=== PATIENT | female | born 1960 | race Two or more races ===

== ENCOUNTER 2020-08-30 08:14 | Outpatient (REF) | payer MEDICAID, SELFPAY ==
--- NOTE | ~2020-08-30 | MM_ITS ---
EXAMINATION: MM DIAGNOSTIC DIGITAL BREAST TOMOSYNTHESIS, BILATERAL US DIAGNOSTIC ULTRASOUND BREAST, BILATERAL CLINICAL INFORMATION: Due for yearly. Patient notes one month history bilateral breast pain left inferior lateral, right inferior lateral. No palpable mass or discharge. Family history breast cancer in mother. The lifetime risk of breast cancer based on the Tyrer-Cuzick Model is 12%. COMPARISON: Mammography: 09/13/2018, 08/02/2017, 07/24/2016 TECHNIQUE: Digital breast tomosynthesis is performed in both the craniocaudal and mediolateral oblique views along with computer-aided detection (CAD). Synthesized 2D images are generated from the tomosynthesis. Ultrasound of both breasts is targeted to the areas of clinical concern, left 3:00 through 5:00 position and right 7:00 through 9:00 position. Grayscale imaging and color Doppler are performed without and with harmonics. FINDINGS: There are scattered areas of fibroglandular density (ACR BI-RADS breast composition Category b). There are no significant masses, abnormal calcifications, or other abnormalities. Parenchymal pattern is similar to prior studies. There is no developing density. No skin thickening or coarsening of the Jay's ligament. The axilla are unremarkable. Targeted bilateral breast ultrasound demonstrates no cystic or solid mass, architectural abnormality, or focal duct ectasia. No skin thickening or edema tracking in soft tissue planes. No focal hyperemia. Results are discussed with the patient at time of visit, using an car seat maker. MM/MM tomosynthesis diagnostic BI IMPRESSION: 1. No mammographic evidence of malignancy or inflammatory changes. 2. Unremarkable bilateral targeted breast ultrasound. ASSESSMENT: BI-RADS 1: Negative RECOMMENDATION: 1. Patient's bilateral breast pain should be managed based on the clinical impression. 2. Otherwise, routine annual screening mammography. This patient's information was entered into a reminder system with a target due date for their next mammogram.
== END 2020-08-30 08:15 | disposition home or self-care (01) ==
LOC: HO.MAMMO 08:14
PROVIDERS: Visit Provider Family Medicine
DX: N64.4 Mastodynia (principal); Z80.3 Family history of malignant neoplasm of breast
CPT/HCPCS: 76642; 77062; 77066

== ENCOUNTER 2021-09-22 11:45 | Outpatient (REF) | payer MEDICAID, SELFPAY ==
--- NOTE | ~2021-09-22 | MM_ITS ---
EXAMINATION: MM SCREENING DIGITAL BREAST TOMOSYNTHESIS, BILATERAL CLINICAL INFORMATION: Screening. Asymptomatic. The lifetime risk of breast cancer based on the Tyrer-Cuzick Model is 6%. COMPARISON: Mammography: 08/30/2020, 09/13/2018, 08/02/2017 TECHNIQUE: Digital breast tomosynthesis is performed in both the craniocaudal and mediolateral oblique views along with computer-aided detection (CAD). Synthesized 2D images are generated from the tomosynthesis. FINDINGS: There are scattered areas of fibroglandular density (ACR BI-RADS breast composition Category b). There are no significant masses, abnormal calcifications, or other abnormalities. Parenchymal pattern is similar to prior studies. There is no developing density or architectural abnormality. The axilla and skin contours are unremarkable. No significant changes. MM/MM tomosynthesis screening BI IMPRESSION: No mammographic evidence of malignancy. ASSESSMENT: BI-RADS 1: Negative RECOMMENDATION: Routine annual mammography screening. This patient's information was entered into a reminder system with a target due date for their next mammogram.
== END 2021-09-22 11:46 | disposition home or self-care (01) ==
LOC: HO.MAMMO 11:45
PROVIDERS: PCP Family Medicine; Visit Provider Family Medicine
DX: Z12.31 Encounter for screening mammogram for malignant neoplasm of breast (principal)
CPT/HCPCS: 77063; 77067

== ENCOUNTER 2021-11-07 14:00 | Outpatient (RCR) | payer MEDICAID, SELFPAY | END 2021-12-25 07:39 | disposition home or self-care (01) | LOC: HO.PT 14:00 | PROVIDERS: PCP Family Medicine; Visit Provider Nurse Practitioner Primary Care | DX: R42 Dizziness and giddiness (principal) | CPT/HCPCS: 97112; 97162 ==

== ENCOUNTER 2022-12-01 08:52 | Outpatient (REF) | payer MEDICAID, SELFPAY ==
--- NOTE | ~2022-12-01 | MM_ITS ---
EXAMINATION: MM SCREENING DIGITAL BREAST TOMOSYNTHESIS, BILATERAL CLINICAL INFORMATION: Screening. Asymptomatic. The lifetime risk of breast cancer based on the Tyrer-Cuzick Model is 8.8%. COMPARISON: Mammography: This study is compared with prior exams dating back to 2019. TECHNIQUE: Digital breast tomosynthesis is performed in both the craniocaudal and mediolateral oblique views along with computer-aided detection (CAD). Synthesized 2D images are generated from the tomosynthesis. FINDINGS: There are scattered areas of fibroglandular density (ACR BI-RADS breast composition Category b). There are no significant masses, abnormal calcifications, or other abnormalities. MM/MM tomosynthesis screening BI IMPRESSION: No mammographic evidence of malignancy. ASSESSMENT: BI-RADS BI-RADS 1 - Negative RECOMMENDATION: Routine annual mammography screening. 1 year F/U This examination should not preclude the clinical evaluation of a suspicious palpable abnormality. This patient's information was entered into a reminder system with a target due date for their next mammogram.
== END 2022-12-01 08:53 | disposition home or self-care (01) ==
LOC: HO.MAMMO 08:52
PROVIDERS: PCP Family Medicine; Visit Provider Family Medicine
DX: Z12.31 Encounter for screening mammogram for malignant neoplasm of breast (principal)
CPT/HCPCS: 77063; 77067

== ENCOUNTER → 2022-12-01 09:00 | Outpatient (BNV) | payer MEDICAID, SELFPAY | PROVIDERS: PCP Family Medicine; Visit Provider Radiology Diagnostic Radiology | DX: Z12.31 Encounter for screening mammogram for malignant neoplasm of breast (principal) | CPT/HCPCS: 77063; 77067 ==

== ENCOUNTER 2023-10-11 08:31 | Outpatient (REF) | payer MEDICAID, SELFPAY ==
[2023-10-11 11:58] LABS: Alanine Aminotransferase 32 U/L (0-31); Albumin Level 4.1 g/dL (3.5-5.0); Alkaline Phosphatase 97 U/L (39-117); Anion Gap 14 (12-20); Aspartate Amino Transferase 37 U/L (5-31); Bilirubin Direct 0.2 mg/dL (0.0-0.5); Bilirubin Total 0.3 mg/dL (0.0-1.0); Blood Urea Nitrogen 19 mg/dL (9-16); Calcium 9.5 mg/dL (8.4-10.2); Carbon Dioxide 24 mmol/L (22-29); Chloride 107 mmol/L (96-108); Cholesterol 200 mg/dL (<200); Estimated Glomerular Filt Rate > 60; Glucose Random 140 mg/dL (60-115); HDL Cholesterol 48 mg/dL (>40); LDL Cholesterol Calculated 106 mg/dL (<100); Potassium 4.5 mmol/L (3.3-5.1); Sodium 140 mmol/L (135-145); Total Protein 7.8 g/dL (6.5-8.0); Triglycerides 231 mg/dL (<150)
[2023-10-11 12:19] LABS: Creatinine Urine 50.43 mg/dL; Microalbum/Creatinine Ratio Ur 23.7 ug/mg cr (<30)
== END 2023-10-11 08:32 | disposition home or self-care (01) ==
LOC: HO.HHCL 08:31
PROVIDERS: Visit Provider Family Medicine
DX: E11.65 Type 2 diabetes mellitus with hyperglycemia (principal); Z79.4 Long term (current) use of insulin
CPT/HCPCS: 36415; 80048; 80061; 80076; 82043; 82570

== ENCOUNTER 2023-11-16 08:51 | Outpatient (REF) | payer MEDICAID, SELFPAY ==
--- NOTE | ~2023-11-16 | US_ITS ---
EXAMINATION: US COMPLETE ABDOMEN WITH LIVER ELASTOGRAPHY CLINICAL INFORMATION: Elevated liver function tests. COMPARISON: None available. TECHNIQUE: Real-time imaging of the abdominal viscera. Noninvasive ultrasound liver fibrosis assessment is performed using Dimas ElastPQ point quantification shear wave elastography (2D-SWE) with a C5-2 MHz transducer. Multiple elastography samples are obtained. FINDINGS: PANCREAS: Largely obscured by overlapping gas. ABDOMINAL AORTA: The proximal, middle, and distal aortic segments are normal in caliber. INFERIOR VENA CAVA: Visualized portions are normal. LIVER: The liver demonstrates normal size, contour and generally increased echogenicity. No focal lesion or intrahepatic biliary duct dilatation. The right lobe measures 13.4 cm in length. The left lobe measures 10.4 cm in length. Portal flow is towards the liver (hepatopetal). Shear wave liver elastography median stiffness is 1.49 m/s (reference: normal median stiffness is 1.3 m/s or less). IQR/median stiffness to assess sampling precision is 0.15 (reference: good quality data set is IQR/median stiffness of 0.15 or less). GALLBLADDER: Normal. The gallbladder is physiologically distended without evidence of stones, sludge, polyps, wall thickening or pericholecystic fluid. COMMON BILE DUCT: Normal in caliber measuring 0.2 cm in diameter. RIGHT KIDNEY: Normal. No hydronephrosis. No renal calculi or focal parenchymal lesions. The kidney measures 10.4 cm in maximum dimension. LEFT KIDNEY: Normal. No hydronephrosis. No renal calculi or focal parenchymal lesions. The kidney measures 10.6 cm in maximum dimension. SPLEEN: Normal. The spleen measures 10.8 cm in maximum dimension. FREE FLUID: None. US/US abdomen comp w elastography IMPRESSION: 1. There is generalized increase in hepatic echotexture, consistent with fatty infiltration or hepatocellular disease. Please correlate clinically. No focal hepatic mass or intrahepatic biliary dilatation is seen. 2. Liver elastography: In the absence of other known clinical signs, measurements rule out compensated advanced chronic liver disease. If there are known clinical signs, further testing may be needed for confirmation. 3. The gallbladder is surgically absent. REFERENCE: Society of Radiologists in Ultrasound Liver Stiffness Thresholds (2020): LIVER STIFFNESS THRESHOLDS: *Liver Stiffness equal or less than 1.3 m/s: High probability of being normal. *Liver Stiffness less than 1.7 m/s: In the absence of other known clinical signs, rules out compensated advanced chronic liver disease. *Liver Stiffness 1.7-2.1 m/s: Suggestive of compensated advanced chronic liver disease but need further test for confirmation. *Liver Stiffness over 2.1 m/s: Rules in compensated advanced chronic liver disease. *Liver Stiffness over 2.4 m/s: Suggestive of clinically significant portal hypertension. QUALITY OF DATA SET: *IQR/Median value equal or less than 0.15 implies a quality data set. *IQR/Median value over 0.15 implies a poor quality data set. SIGNIFICANT CHANGE FROM PRIOR EXAM: Significant change if liver stiffness measurement is 10% or greater from prior exam. OTHER CONSIDERATIONS: The stage of liver fibrosis may be overestimated in the setting of acute hepatitis, liver inflammation, elevated liver function tests, hepatic vascular congestion, obstructive cholestasis, non-fasting state, and infiltrative diseases such as amyloidosis and lymphoma. In some patients with NAFLD, the liver stiffness thresholds for compensated advanced chronic liver disease may be lower. In causes other than viral hepatitis and NAFLD, liver stiffness thresholds are not well established.
== END 2023-11-16 08:52 | disposition home or self-care (01) ==
LOC: HO.US 08:51
PROVIDERS: PCP Family Medicine; Visit Provider Family Medicine
DX: R74.01 Elevation of levels of liver transaminase levels (principal)
CPT/HCPCS: 76700; 76981

== ENCOUNTER 2023-12-03 14:08 | Outpatient (REF) | payer MEDICAID, SELFPAY | END 2023-12-03 14:09 | disposition home or self-care (01) | LOC: HO.MAMMO 14:08 | PROVIDERS: Visit Provider Family Medicine | DX: Z12.31 Encounter for screening mammogram for malignant neoplasm of breast (principal) | CPT/HCPCS: 77063; 77067 ==

== ENCOUNTER → 2023-12-03 14:45 | Outpatient (BNV) | payer MEDICAID, SELFPAY | PROVIDERS: Visit Provider Radiology Diagnostic Radiology | DX: Z12.31 Encounter for screening mammogram for malignant neoplasm of breast (principal) | CPT/HCPCS: 77063; 77067 ==

== ENCOUNTER 2023-12-13 10:19 | Outpatient (AMB) | payer MEDICAID, SELFPAY ==
--- NOTE | 2023-12-13 10:23 | A.OFFVIS_ITS ---
Vital Signs 12/13/23 10:28 Height 5 ft 2 in Weight 179 lb BMI 32.7 BP 136/66 Blood Pressure Location Rt brachial Position Sitting Pulse 81 Intake Visit Reasons: recall colonoscopy screening, Constipation Intake Note: This patient presents for a recall colonoscopy screening. Patient c/o; reports constipation, reports no rectal bleeding, reports no pain. 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 Accompanied by: Daughter Allergies pineapple [Pineapple] Allergy (Intermediate, Unverified 12/13/23 10:29) SORES IN MOUTH Medication List - Last Reviewed 12/13/23 by ALEKSANDRA Gant aspirin 1 tab PO QAM blood sugar diagnostic (FreeStyle Precision Donnie Strips) As directed cholecalciferol (vitamin D3) 25 mcg PO QAM empagliflozin (Jardiance) 10 mg PO QAM flash glucose sensor (FreeStyle Toni 2 Sensor kit) As directed insulin glargine (Lantus Solostar U-100 Insulin) 34 units subcut QPM insulin lispro subcut lancets (TRUEplus Lancets) As directed lisinopril 2.5 mg PO QAM metformin ER 500 mg PO omeprazole 20 mg PO DAILY rosuvastatin 20 mg PO QAM semaglutide (Ozempic) 0.5 mg subcut QWEEK HPI HPI recall colonoscopy screening, Constipation: Details: 63-year-old female referred for screening colonoscopy. She admits to history of chronic constipation although she says that this may have started when she started taking Ozempic. She has a known diabetic. She denies bleeding per rectum. She denies any family history of colon cancer. Her last colonoscopy on record was in 2009. This showed diffuse diverticulosis [facility] Medical History Chronic constipation Surgical History History of cholecystectomy Family History Mother Breast cancer Family/Other Breast cancer Social History Alcohol intake: never Patient Tobacco Use Status: Never used Tobacco Review of Systems Const Denies chills and Denies fever(s) Card Denies chest pain, Denies dyspnea and Denies dyspnea on exertion Resp Denies cough, Denies dyspnea and Denies dyspnea on exertion GI Denies hematochezia, Denies change in bowel habits and Reports constipation Denies hematuria Musc Denies back pain and Denies limited range of motion Neuro Denies focal weakness and Denies convulsions Psych Denies depression and Denies mood swings Physical Exam Vital Signs: Last Vital Signs Pulse 81 12/13/23 10:28 BP 136/66 12/13/23 10:28 BMI result Body Mass Index 32.7 Const General: comfortable and no acute distress Orientation/consciousness: patient oriented x3 Neck Neck: Yes no lymphadenopathy Resp Auscultation: clear to auscultation bilaterally Cardio Rhythm: regular rhythm GI Palpation (GI): Soft to palpation, nontender and no guarding Neuro General: patient oriented x3 Assessment & Plan Assessment & Plan (1) Chronic constipation: Code(s): K59.09 - Other constipation Category: Medical Plan: She describes issues with constipation. She does state that this may have started when she started taking Ozempic about 2-3 months ago. Her last colonoscopy on record was in 2009. I therefore told her it will be best to proceed with colonoscopy. I explained the technique of this procedure. I reviewed the risks including but not limited to bleeding and perforation, as well as the benefits and alternatives. She understands and wants to proceed. Medications: New blood sugar diagnostic (FreeStyle Precision Donnie Strips) As directed rosuvastatin 20 mg PO QAM cholecalciferol (vitamin D3) 25 mcg PO QAM semaglutide (Ozempic) 0.5 mg subcut QWEEK insulin lispro subcut lancets (TRUEplus Lancets) As directed flash glucose sensor (FreeStyle Toni 2 Sensor kit) As directed insulin glargine (Lantus Solostar U-100 Insulin) 34 units subcut QPM lisinopril 2.5 mg PO QAM aspirin 1 tab PO QAM omeprazole 20 mg PO DAILY empagliflozin (Jardiance) 10 mg PO QAM metformin ER 500 mg PO sodium,potassium,mag sulfates 17.5-3.13-1.6 gram (Suprep Bowel Prep Kit) DILUTE; drink full amount early evening before AND next morning at least 2 hr before procedure; follow w 960 mL water PO 354 mL 0RF Coding Level of Care Code New Pt Level 3 (93900) Diagnoses Chronic constipation K59.09
[2023-12-13 10:28] VITALS: BP 136/66; PULSE 81; BMI 32.7
== END 2023-12-13 10:43 | disposition home or self-care (01) ==
PROVIDERS: PCP Family Medicine; Visit Provider Surgery
DX: K59.09 Other constipation (principal)
CPT/HCPCS: 99203

== ENCOUNTER → 2023-12-13 10:19 | Outpatient (BNVA) | payer MEDICAID, SELFPAY | PROVIDERS: PCP Family Medicine; Visit Provider Surgery | DX: K59.09 Other constipation (principal) | CPT/HCPCS: 99202 ==

== ENCOUNTER 2024-01-07 08:08 | Day surgery (SDC) | payer MEDICARE, MEDICAID, SELFPAY ==
[2023-12-24 13:59] VITALS: BMI 32.7
--- NOTE | 2023-12-28 13:33 | HO.ANESPROP2 ---
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 Dyslipidemia Depression Diabetes Back pain Chronic constipation Family History Family History Mother Breast cancer Family/Other Breast cancer Surgical History Surgical History H/O colonoscopy History of surgery of uterus History of cholecystectomy Social History Social History Are you a primary senior care manager to a significant other at home: No Do you presently have visiting nurse or other home services: No Alcohol intake: never Patient Tobacco Use Status: Never used Tobacco Meds Allergies Allergy/AdvReac Type Severity Reaction Status Date / Time pineapple [Pineapple] Allergy Intermediate SORES IN Verified 01/07/24 08:47 MOUTH latex Allergy Unknown Verified 01/07/24 08:47 Home Medications ?Medication ?Instructions ?Recorded ?Confirmed ?Last Taken ?Type blood sugar diagnostic (FreeStyle #10 ea 12/13/23 Unknown History Precision Donnie Strips) flash glucose sensor (FreeStyle #1 ea 12/13/23 Unknown History Toni 2 Sensor kit) insulin glargine 100 unit/mL (3 30 unit subcut QPM 12/13/23 12/24/23 Unknown History mL) subcutaneous pen (Lantus Solostar U-100 Insulin) insulin lispro 100 unit/mL 12/13/23 12/24/23 Unknown History subcutaneous pen lancets 33 gauge (TRUEplus Lancets) #100 ea 12/13/23 Unknown History omeprazole 20 mg capsule,delayed 20 mg PO DAILY 12/13/23 12/24/23 Unknown History release semaglutide 0.25 mg or 0.5 mg (2 0.5 mg subcut QWEEK 12/13/23 12/24/23 Unknown History mg/3 mL) subcutaneous pen injector (Ozempic) Exam Height,Weight and Vital Signs: Height 5 ft 2 in Weight 81.193 kg Pertinent Lab Results Pertinent Lab Results: Laboratory Tests 10/11/23 08:32 Sodium 140 Potassium 4.5 Chloride 107 Carbon Dioxide 24 BUN 19 H Creatinine 0.78 Assessment and Plan Assessment Anesthesia Assessment: Chart Reviewed
[2024-01-07 08:21] VITALS: BMI 32.0
[2024-01-07 08:33] LABS: Glucose, Whole Blood 187 mg/dL (60-115)
[2024-01-07 08:45] VITALS: BP 140/73; PULSE 73; RESP 16; TEMP 35.8; O2SAT 96
[2024-01-07] MEDS: Lactated Ringers 1,000 ML 100 ML IVCONT (08:48)
--- NOTE | 2024-01-07 08:49 | P.CONAN_ITS ---
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 Dyslipidemia Depression Diabetes Back pain Chronic constipation Functional capacity: independent ambulation Patient : No Family History Family History Mother Breast cancer Family/Other Breast cancer Family history of problems with anesthesia: No Surgical History Surgical History H/O colonoscopy History of surgery of uterus History of cholecystectomy History of Problems with Anesthesia: No Social History Social History Are you a primary client care representative to a significant other at home: No Do you presently have visiting nurse or other home services: No Alcohol intake: never Patient Tobacco Use Status: Never used Tobacco Use of substances other than those prescribed or required for medical reasons: No Have you been hit, kicked, punched, or otherwise hurt by someone within the past year? If so, by whom?: No Are you DNR?: No Advance Directives: No Advance Directives Information Provided: Yes Advance Directives on File: No Recently lost weight without trying: No Eating poorly because of decreased appetite: No Nutrition Risks: No Nutritional Risk Patient : No : No Poor oral hygiene: Yes (crowns) Meds Allergies Allergy/AdvReac Type Severity Reaction Status Date / Time pineapple [Pineapple] Allergy Intermediate SORES IN Verified 01/07/24 08:47 MOUTH latex Allergy Unknown Verified 01/07/24 08:47 Active Medications: Current Medications Lactated Ringer's (Lr) 1,000 mls @ 100 mls/hr IVCONT .Q10H LONI Last Admin: 01/07/24 08:48 Dose: 100 mls/hr Home Medications ?Medication ?Instructions ?Recorded ?Confirmed ?Last Taken ?Type blood sugar diagnostic (FreeStyle #10 ea 12/13/23 Unknown History Precision Donnie Strips) flash glucose sensor (FreeStyle #1 ea 12/13/23 Unknown History Toni 2 Sensor kit) insulin glargine 100 unit/mL (3 30 unit subcut QPM 12/13/23 12/24/23 Unknown History mL) subcutaneous pen (Lantus Solostar U-100 Insulin) insulin lispro 100 unit/mL 12/13/23 12/24/23 Unknown History subcutaneous pen lancets 33 gauge (TRUEplus Lancets) #100 ea 12/13/23 Unknown History omeprazole 20 mg capsule,delayed 20 mg PO DAILY 12/13/23 12/24/23 Unknown History release semaglutide 0.25 mg or 0.5 mg (2 0.5 mg subcut QWEEK 12/13/23 12/24/23 Unknown History mg/3 mL) subcutaneous pen injector (Ozempic) Exam Height,Weight and Vital Signs: Height 5 ft 2 in Weight 79.379 kg Last Vital Signs Temp 96.5 F L 01/07/24 08:45 Pulse 73 01/07/24 08:45 Resp 16 01/07/24 08:45 BP 140/73 H 01/07/24 08:45 Pulse Ox 96 01/07/24 08:45 O2 Del Method Room Air 01/07/24 08:45 Pertinent Lab Results Pertinent Lab Results: Laboratory Tests 01/07/24 08:28 POC Glucose 187 H Airway Mallampati Class: II TM Dist: >3cm Neck ROM: Full Heart: RRR Lungs: CTA Assessment and Plan Assessment Anesthesia Assessment: Anesthesia Plan Discussed Final Anesthetic Review Family History of Problems with Anesthesia: No History of Problems with Anesthesia: No NPO: Yes ASA Class: II Final Preanesthetic Review: Meds/Allgs Chart Reviewed, Consent Obtained/Reviewed and Anes Risks/Benef Reviewed Patient Risk: Low Procedure Risk: Low Anesthetic Plan Anesthetic Plan: MAC: Disposition: Standard PACU
--- NOTE | 2024-01-07 08:54 | MHC.SHP ---
Pre-Procedural Eval Section A - 24 Hr Update-Section A only Date of Service: 01/07/24 The patient is an INPATIENT: No Changes since office visit: No Cold of Flu in the past 2 weeks, No New Medical Problems, No Changes in Medication and No Patient answered all questions The patient has been examined within 24 hours of the surgical procedure. The History & Physical has been completed within 30 days and I have reviewed it.: Yes Section B - Complete if H&P > 30 days Chief Complaint: Other constipation Allergies: Allergies Allergy/AdvReac Type Severity Reaction Status Date / Time pineapple [Pineapple] Allergy Intermediate SORES IN Verified 01/07/24 08:47 MOUTH latex Allergy Unknown Verified 01/07/24 08:47 Plan I have reviewed the history and physical and performed a pertinent physical examination on my patient. No changes have occurred unless specified. Time Spent With Patient Time: Total time managing care of this patient today ____ minutes.
--- NOTE | 2024-01-07 09:47 | W.PM.OPN ---
Operative Note Operative Note Date of Service: 01/07/24 Narrative: Preop Diagnosis: Colon cancer screening Postop diagnosis: 1. Diverticulosis throughout the colon 2. Small polyp about 2-3 mm at level 55 cm Procedure: Colonoscopy with polypectomy using cold forceps x1 Surgeon: Chinedu Wallis MD The patient is a 63 year old female here for screening colonoscopy. She understood the technique of the planned procedure as well as the risks, benefits, and alternatives. The patient was brought to the operating room and placed in left lateral decubitus position under monitored anesthesia care. A surgical time-out was done. A full digital rectal exam was done and this did not reveal any significant anal lesions. The tip of the Olympus colonoscope was gently introduced through the anal orifice advanced with insufflation all the way to the cecum. The cecum was intubated. The cecum was identified by visualization of the ileocecal valve as well as the appendiceal orifice. The cecal mucosa was unremarkable. The scope was gradually withdrawn with careful examination of the entire colonic mucosa being done with scope withdrawal. The patient had adequate bowel prep so it was unlikely that any lesion may have been missed. There was note of scattered a closed this throughout the entire colon. There was note of a small polyp about 2-3 mm at level 55 cm. This was removed using cold forceps. The rectum was reached and there were no lesions seen. The anal canal was unremarkable. The scope was then withdrawn completely with desufflation The patient tolerated procedure well. There were no immediate complications. Depending on path report, her next colonoscopy may be in the next 10 years.
[2024-01-07 09:53] VITALS: BP 122/76; PULSE 81; RESP 16; TEMP 36.1; O2SAT 98
[2024-01-07 10:08] VITALS: BP 117/84; PULSE 74; RESP 18; O2SAT 100
[2024-01-07 10:23] VITALS: BP 127/84; PULSE 74; RESP 18; TEMP 36.1; O2SAT 100
--- NOTE | 2024-01-07 10:37 | PC.NURSE ---
bio medical technician present for d/c instructions.
== END 2024-01-07 10:58 | disposition home or self-care (01) ==
PROVIDERS: PCP Family Medicine; Visit Provider Surgery
PROC: 0DBE8ZZ Excision of Large Intestine, Via Natural or Artificial Opening Endoscopic (ICD-10-PCS; CPT 45380; principal; 2024-01-07 09:00)
DX: Z12.11 Encounter for screening for malignant neoplasm of colon (principal); K57.30 Diverticulosis of large intestine without perforation or abscess without bleeding; K63.5 Polyp of colon; K59.09 Other constipation; E11.9 Type 2 diabetes mellitus without complications
CPT/HCPCS: 45380; 82947; 88305; J1596; J2704

== ENCOUNTER → 2024-01-07 08:08 | Outpatient (BNV) | payer MEDICARE, MEDICAID, SELFPAY | PROVIDERS: PCP Family Medicine; Visit Provider Surgery | DX: Z12.11 Encounter for screening for malignant neoplasm of colon (principal); K63.5 Polyp of colon; K57.90 Diverticulosis of intestine, part unspecified, without perforation or abscess without bleeding | CPT/HCPCS: 45380 ==

== ENCOUNTER 2024-01-20 10:32 | Outpatient (AMB) | payer MEDICARE, SELFPAY ==
--- NOTE | 2024-01-20 10:32 | A.OFFVIS_ITS ---
Intake Visit Reasons: S/P colonoscopy Intake Note: Telehealth visit for colonoscopy results. Pt c/o; reports no complaints. Tetryl Boiling Tub Operator Required: Yes Tetryl Boiling Tub Operator Language: Ordnance Artificer Services: Tetryl Boiling Tub Operator Present Tetryl Boiling Tub Operator Name: Deandra Information Interpreted: non-clinical & clinical Accompanied by: Self / Same As Patient Allergies pineapple [Pineapple] Allergy (Intermediate, Verified 01/20/24 10:33) SORES IN MOUTH latex Allergy (Verified 01/20/24 10:33) Unknown HPI HPI S/P colonoscopy: Details: She underwent colonoscopy for screening last January 07, 2024. She tolerated the procedure well. She says she feels well and currently denies complaints.. This is a telehealth visit. 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 Dyslipidemia Depression Diabetes Back pain Chronic constipation Surgical History History of colonoscopy with polypectomy (~01/07/24) H/O colonoscopy History of surgery of uterus History of cholecystectomy Family History Mother Breast cancer Family/Other Breast cancer Social History Are you a primary residential care facility manager to a significant other at home: No Do you presently have visiting nurse or other home services: No Alcohol intake: never Patient Tobacco Use Status: Never used Tobacco Review of Systems Const Denies chills and Denies fever(s) Card Denies chest pain, Denies dyspnea and Denies dyspnea on exertion Resp Denies cough, Denies dyspnea and Denies dyspnea on exertion GI Denies hematochezia and Denies change in bowel habits Denies hematuria Musc Denies back pain and Denies limited range of motion Neuro Denies focal weakness and Denies convulsions Psych Denies depression and Denies mood swings Telehealth Telehealth Telehealth Platform: Telephone Location of provider rendering services: practice address Location of patient: address on file Patient Identification confirmed using: Name, : Yes Telehealth method: voice only Patient verbally consented to treatment: Yes Patient verbally consented to billing insurance company: Yes Patient informed of any privacy concerns related to visit: Yes Assessment & Plan Assessment & Plan (1) Chronic constipation: Code(s): K59.09 - Other constipation Category: Medical Plan: Status post colonoscopy. I reviewed with her the findings- she had diverticulosis. I removed a small polyp this was normal colonic mucosa on pathology She falls at average risk for colon cancer so I told her that her next colonoscopy for screening may be in the next 10 years. She understands this well This was a telehealth visit. Coding Level of Care Code Tele Est Pt Level 2 (04025) Diagnoses Chronic constipation K59.09
== END 2024-01-20 10:37 | disposition home or self-care (01) ==
LOC: HO.HGS 10:32
PROVIDERS: PCP Family Medicine; Visit Provider Surgery
DX: K59.09 Other constipation (principal)
CPT/HCPCS: 99441

== ENCOUNTER → 2024-01-20 10:32 | Outpatient (BNVA) | payer MEDICARE, SELFPAY | PROVIDERS: PCP Family Medicine; Visit Provider Surgery ==

== ENCOUNTER 2024-02-01 16:33 | Outpatient (REF) | payer MEDICARE, SELFPAY ==
[2024-02-03 14:48] LABS: HPV mRNA E6/E7 Not Detected (Not Detected)
== END 2024-02-01 16:34 | disposition home or self-care (01) ==
LOC: HO.HHCLNP 16:33
PROVIDERS: Visit Provider Family Medicine
DX: Z01.419 Encounter for gynecological examination (general) (routine) without abnormal findings (principal)
CPT/HCPCS: 36415; 87624; 88175

== ENCOUNTER 2024-11-02 12:04 | Outpatient (REF) | payer MEDICARE, SELFPAY ==
--- NOTE | ~2024-11-02 | XR_ITS ---
EXAMINATION: XR KNEE 3 VIEWS LEFT HISTORY: left knee x-ray COMPARISON: There are no prior studies available for comparison. FINDINGS: Three views of the knee are submitted. Osseous mineralization is normal. There is no fracture or dislocation. There is mild osteoarthritis of the medial compartment with joint space narrowing and osteophyte formation off the proximal tibia. The soft tissues are unremarkable. There is no joint effusion. XR/XR knee LT 3V IMPRESSION: Mild osteoarthritis of the medial compartment. Electronically signed by: Akhil Grey MD 11/02/2024 02:26 PM EDT
[2024-11-02 13:33] LABS: MANUAL DIFF FLAG NO
[2024-11-02 13:39] LABS: Basophils Absolute Auto 0.1 X10*3/uL (0.0-0.2); Eosinophils Absolute Auto 0.2 X10*3/uL (0.0-0.4); Eosinophils Percent Auto 2.9 % (0-4); Hematocrit 41.1 % (37.0-47.0); Hemoglobin 13.9 g/dl (12.0-16.0); Imm Gran Abs Auto 0.01 X10*3/uL (0.00-0.03); Imm Gran Pct Auto 0.1 % (0.0-0.4); Lymphocytes Absolute Auto 1.9 X10*3/uL (1.2-4.9); Lymphocytes Percent Auto 28.4 % (20-40); Mean Corpuscular HGB Conc 33.8 g/dl (31.0-35.0); Mean Corpuscular Hemoglobin 30.8 pg (27.0-33.0); Mean Corpuscular Volume 90.9 fL (80.0-98.0); Mean Platelet Volume 13.7 fL (9.4-12.3); Monocytes Absolute Auto 0.3 X10*3/uL (0.1-1.2); Neutrophils Absolute Auto 4.3 x10*3/uL (2.0-8.3); Neutrophils Percent Auto 62.6 % (45-73); Platelet Count 178 X10*3/uL (160-400); Red Blood Count 4.52 X10*6/uL (4.20-5.50); White Blood Count 6.8 X10*3/uL (4.8-10.8)
[2024-11-02 13:50] LABS: Creatinine Urine 101.18 mg/dL; Microalbum/Creatinine Ratio Ur 8.8 ug/mg cr (<30)
--- OUTSIDE RECORDS SUMMARY | 2024-11-02 14:11 | XMS_ITS | Continuity of Care Document ---
Author Organization [facility] e Address [address] [place] [address] Phone Care Team Providers Care French Drawer Name Role Phone Alexys Rodriguez MD Unavailable Unavailable Allergies, Adverse Reactions, Alerts Substance Reaction Status Criticality No Known Allergies Active No Inform ation Medications Medication Instructions Dosage Effective Dates (start - stop) Status Comments simvastatin 10 mg tablet take 1 tablet by oral route every day in the evening 10 MG - Active metformin 500 mg tablet take 1 tablet by oral route 2 times every day with morning and evening meals 500 MG - Active Procedures Procedure Date Refraction New Patient; CEX Advance Directives Directive Yes / No Effective Date File Name No Information Encounters Encounter Description Practice Location Reason(s) For Visit Diagnoses Date Provider Providers Copied on Encounter [facility] , [address], [place], [place], [id number] , [phone] [facility] DM (chief complaint) Dry eye syndrome of bilateral lacrimal glandsAge-related nuclear cataract, bilateralPterygium of right eyeType 2 diabetes mellitus without complications 8 Jennifer Reardon. [address], [place], [place], [id number] , . tel:[phone] Referring Provider: Alexys Zavala, [address], [place], [address] . tel:[phone] Family History Family Member Type Diagnosis Age At Onset No Information Payers Payer name Insurance type Covered alliance party ID Authoriza tion(s) [facility] [id number] Social History Type Description Quantity Date Captured Comments Alcohol Use Details Unknown Caffeine Use Details Unknown Tobacco Use Status Current non-smoker 17 Smoking Status Never smoker Non-Smoking Tobacco Use Details : No Details Available : No Details Available Sex Female Chief Complaint And Reason For Visit From encounter dated '03/07/2018 09:00'. DM (chief complaint). Description: The 58 year old female presents for evaluation of DM in the right eye and left eye. She was referred over by Dr. Guy. Pt has noticed her vision hasn't been very good over the last dew years. Pt denies taking any At's. Pt c/o glare especially at night time, and she has trouble seeing street signs. She last checked her blood sugar 2 months ago but she doesn't remember what it was, she states her doctor says it is doing good. Pt does not recall her last A1C. Reason For Referral Reason For Referral No Information History Of Present Illness Encounter Date Complaint History Of Prese nt Illness DM The 58 year old female presents for evaluation of DM in the right eye and left eye. She was referred over by Dr. Guy. Pt has noticed her vision hasn't been very good over the last dew years. Pt denies taking any At's. Pt c/o glare especially at night time, and she has trouble seeing street signs. She last checked her blood sugar 2 months ago but she doesn't remember what it was, she states her doctor says it is doing good. Pt does not recall her last A1C. Functional Status Date Functional Assessmen t No Information Instructions Date Instruction Additional Infor dontae RTC in 1 year for CE X with Dr. Rodriguez/Radha Related to Type 2 diabetes mellitus without complications Impression/Plan Related to Type 2 diabetes mellitus without complications Impression/Plan Related to Dry e ye syndrome of bilateral lacrimal glands Impression/Plan Related to Age-r elated nuclear cataract, bilateral Impression/Plan Related to Ptery gium of right eye Assessments Type Assessment Date assessment Dry eye syndrome of bilateral la crimal glands assessment Age-related nuclear cataract, bi lateral assessment Pterygium of right eye 17 assessment Type 2 diabetes mellitus without complications impression Dry eye syndrome of bilateral la crimal glands: H04.123 impression Age-related nuclear cataract, bi lateral: H25.13 impression Pterygium of right eye: H11.001. -2.6mm impression Type 2 diabetes bridgett itus without complications: E11.9.-no retinopathy Patient Care Teams Name Effective Dates (start - stop) Status Members No Information
[2024-11-02 14:14] LABS: Alanine Aminotransferase 23 U/L (0-31); Albumin Level 4.5 g/dL (3.5-5.0); Alkaline Phosphatase 88 U/L (39-117); Anion Gap 11 (12-20); Aspartate Amino Transferase 30 U/L (5-31); Bilirubin Total 0.6 mg/dL (0.0-1.0); Blood Urea Nitrogen 14 mg/dL (9-16); Calcium 9.6 mg/dL (8.4-10.2); Carbon Dioxide 29 mmol/L (22-29); Chloride 105 mmol/L (96-108); Cholesterol 228 mg/dL (<200); Estimated Glomerular Filt Rate > 60; Glucose Random 163 mg/dL (60-115); HDL Cholesterol 41 mg/dL (>40); LDL Cholesterol Calculated 131 mg/dL (<100); Potassium 4.5 mmol/L (3.3-5.1); Sodium 140 mmol/L (135-145); Total Protein 7.7 g/dL (6.5-8.0); Triglycerides 283 mg/dL (<150)
[2024-11-02 14:18] LABS: Folate 14.9 ng/mL (> or = 4.0); Vitamin B12 809 pg/mL (200-900)
[2024-11-02 14:19] LABS: TSH reflex Free T4 1.72 uIU/mL (0.32-4.0); Vitamin D 25-OH Total 25.9 ng/mL (>30)
[2024-11-02 14:43] LABS: Reflex LDLD? No
== END 2024-11-02 12:05 | disposition home or self-care (01) ==
LOC: HO.HHCL 12:04
PROVIDERS: Visit Provider Family Medicine
DX: E78.5 Hyperlipidemia, unspecified (principal); K76.0 Fatty (change of) liver, not elsewhere classified; E11.65 Type 2 diabetes mellitus with hyperglycemia; Z79.4 Long term (current) use of insulin; E55.9 Vitamin D deficiency, unspecified; M25.562 Pain in left knee; G89.29 Other chronic pain
CPT/HCPCS: 36415; 73562; 80053; 80061; 82043; 82306; 82570; 82607; 82746; 84443; 85025

== ENCOUNTER → 2024-11-02 12:28 | Outpatient (BNV) | payer MEDICARE, SELFPAY | PROVIDERS: Visit Provider Radiology Diagnostic Radiology | DX: M25.562 Pain in left knee (principal) | CPT/HCPCS: 73562 ==

== ENCOUNTER 2025-02-27 09:58 | Outpatient (REF) | payer MEDICARE, SELFPAY ==
--- NOTE | ~2025-02-27 | MM_ITS ---
EXAMINATION: DXA BONE DENSITY AXIAL HISTORY: postmenopause. Osteoporosis screening TECHNIQUE: [place] Dual energy absorptiometry (DEXA) of the lumbar spine, total left hip, and femoral neck was performed. COMPARISON: There are no prior studies for comparison. FINDINGS: The bone mineral density of the lumbar spine is 1.066 g/cm2, corresponding to a T-score of -1.0, and a Z-score of 0.1. This is indicative of normal bone mineral density. The bone mineral density of the left total hip is 0.996 g/cm2, corresponding to a T-score of -0.1, and a Z-score of 0.8. This is indicative of normal bone mineral density. The bone mineral density of the left femoral neck is 0.934 g/cm2, corresponding to a T-score of -0.7, and a Z-score of 0.4. This is indicative of normal bone mineral density. MM/XR DEXA axial skeleton IMPRESSION: Based on bone mineral density, and according to World Health Organization (WHO) criteria, the diagnosis is consistent with normal bone mineral density. Statistically, 68% of repeat scans fall within 1 SD (+/- 0.010 g/cm2 for AP spine L1-L4) and 1 SD (+/- 0.012 g/cm2 for femur total) FRAX is a trademark of the [employer]'s [place] for Metabolic Bone Disease, a World Health Organization (WHO) Collaborating Center. Electronically signed by: Akhil Grey MD 02/27/2025 10:44 AM EDT
--- NOTE | ~2025-02-27 | MM_ITS ---
EXAMINATION: MM SCREENING DIGITAL BREAST TOMOSYNTHESIS, BILATERAL CLINICAL INFORMATION: Screening. Asymptomatic. COMPARISON: Mammography: Comparison is made with available priors TECHNIQUE: Digital breast mammography with tomosynthesis is performed in both the craniocaudal and mediolateral oblique views along with computer-aided detection (CAD). FINDINGS: There are scattered areas of fibroglandular density. There are no significant masses, abnormal calcifications, or other abnormalities. MM/MM tomosynthesis screening BI IMPRESSION: No mammographic evidence of malignancy. ASSESSMENT: BI-RADS Category 1: Negative RECOMMENDATION: Routine annual mammography screening. 1 year F/U This examination should not preclude the clinical evaluation of a suspicious palpable abnormality. This patient's information was entered into a reminder system with a target due date for their next mammogram. Electronically signed by: Gracie Bowie DO 03/06/2025 05:16 PM EDT
--- OUTSIDE RECORDS SUMMARY | 2025-02-27 11:40 | XMS_ITS | Encounter Summary ---
Author Organization [employer] Address [address] [facility] [address] [place] [address] Care Team Providers Care Centrifugal Casting Machine Tender Name Role Phone Aimee Mcfarlane MD Primary Care Provider [phone] Angus Black PharmD Unavailable [phone] Reason for Visit * Reason Comments Med Refill Encounter Details Date Type Department Care Team ([facility] Contact Info) Description 12/01/2024 Refill [facility] [address] [place], [place] [phone] Aimee Mcfarlane MD [address] [place], [place] [phone] Sore throat Social History Tobacco Use Types Packs/Day Years Used Date Smoking Tobacco: Never Passive Smoke Exposure: Never Smokeless Tobacco: Never Depression Answer Date Recorded Patient Health Questionnaire-9 Score 6 02/01/2024 Patient Health Questionnaire-9 Score 6 02/01/2024 Last PHQ-9: Questionnaire Data Not on file 0 02/01/2024 Housing Stability Answer Date Recorded What is your housing situation today? I have lukas min 02/01/[address] you li ve. Do you have problems with any of the following? None of the above 02/01/2024 Food Insecurity Answer Date Recorded Within the past 12 months, y ou worried that your food would run out before you got money to buy more: Never True 02/01/2024 Within the past 12 months,th e food you bought just didn't last and you didn't have enough money to get more: Never True 02/2024 Transportation Answer Date Recorded In the past 12 months, has l ack of transportation kept you from medical appts, meetings, work or from getting things needed for daily living? No 02/01/2024 Utilities Answer Date Recorded In the past 12 months, has t he electric, gas, oil or water company threatened to shut off services in your home? No 02/01/2024 Depression Answer Date Recorded Patient Health Questionnaire-2 Score 2 02/01/2024 Internet Access Answer Date Recorded Internet Access Q1 Yes 02/01/2024 Internet Access Q2 Not on file 02/01/2024 Comments No Sex and Gender Information Value Date Recorded Sex Assigned at Female 03/23/2022 10:14 AM EDT Legal Sex Female 10:14 AM EDT Gender Identity Female 03/23/2022 10:14 AM EDT Sexual Orientation Straight 03/23/2022 10 :14 AM EDT documented as of this encounter Plan of Treatment Upcoming Encounters Date Type Department Care Team (Late st Contact Info) Description 03/23/2025 11:30 AM EDT Medication Management [facility] [address] [place] [id number] Angus Black PharmD [address] [place] [phone] documented as of this encounter Goals Goal Patient Goal Type Associated Problems Recent Progress Patient-Stated? Author Hemoglobin A1c < 7 Result Component 10.4( 11:01 AM EDT) No Angus Black PharmD documented as of this encounter Visit Diagnoses Diagnosis Sore throat Acute pharyngitis documented in this encounter Additional Health Concerns Assessment Noted Time PHQ-9 Depression Total Score: 6 02/01/20 24 11:22 AM EDT documented as of this encounter Care Teams Centrifugal Casting Machine Tender Relationship Specialty Start Date End Date Aimee Mcfarlane MD [address] [place] [phone] PCP - General Family Medicine 05/24/18 Angus Black, Yohana [address] [place] [phone] Pharmacist Internal Medicine 01/04/23 documented as of this encounter
--- OUTSIDE RECORDS SUMMARY | 2025-02-27 11:40 | XMS_ITS | Encounter Summary ---
Author Organization [facility] Address [address] [facility] 7t [place] [address] Care Team Providers Care Barrel Inspector Tight Name Role Phone Aimee Mcfarlane MD Primary Care Provider Angus Black PharmD Unavailable [phone] Reason for Referral * Consultation (Routine) - Pending Review Specialty Diagnoses / Procedures Referred By Contac t Referred To Contact Pharmacy Diagnoses Type 2 diabetes mellitus with hyperglycemia, with long-term current use of insulin ([facility]) Aimee Mcfarlane MD [address] [place] [phone] Phone: tel: fax: Referral ID Status Reason Start Date Expiration Date Visits Requested Visits Authorized [id number] Pending Review Consult and Treat 4 04/04/2025 6 6 Encounter Details Date Type Department Care Team ([facility] st Contact Info) Description 04/04/2024 Orders Only [facility] [address] [place] [address] [phone] Aimee Mcfarlane MD [address] [place] [address] [phone] Type 2 diabetes mellitus with hyperglycemia, with long-term current use of insulin ([facility]/HCC) (Primary Dx) Social History Tobacco Use Types Packs/Day Years [...] Access Q2 Not on file 02/01/2024 Comments Unknown Sex and Gender Information Value Date Recorded Sex Assigned at Female 03/23/2022 10:14 AM EDT Legal Sex Female 10:14 AM EDT Gender Identity Female 03/23/2022 10:14 AM EDT Sexual Orientation Straight 03/23/2022 10 :14 AM EDT documented as of this encounter Plan of Treatment Upcoming Encounters Date Type Department Care Team (Late st Contact Info) Description 03/23/2025 11:30 AM EDT Medication Management [facility] [address] [place] [address] Angus Black, PharmD [address] [place] [address] Scheduled Referrals Name Type Priority Associated Diagnoses Orde r Schedule Referral to Pharmacy CDTM Outpatient Referral Routine Type 2 diabetes mellitus with hyperglycemia, with long-term current use of insulin ([facility]) Ordered: 04/04/2024 documented as of this encounter Goals Goal Patient Goal Type Associated Problems Recent Progress Patient-Stated? Author Hemoglobin A1c < 7 Result Component 10.4(09/03/202 5 11:01 AM EDT) No Angus Black, PharmD documented as of this encounter Visit Diagnoses Diagnosis Type 2 diabetes mellitus with hyperglycemia, with long-term current use of insulin (HCC)- Primary documented in this encounter Additional Health Concerns Assessment Noted Time PHQ-9 Depression Total Score: 6 02/01/20 24 11:22 AM EDT documented as of this encounter Care Teams Barrel Inspector Tight Relationship Specialty Start Date End Date Aimee Mcfarlane MD [address] [place] [address] PCP - General Family Medicine 05/24/18 Angus Black, PharmD [address] [place] [phone] Pharmacist Internal Medicine 01/04/23 documented as of this encounter
--- OUTSIDE RECORDS SUMMARY | 2025-02-27 11:41 | XMS_ITS | Encounter Summary ---
Author Organization [facility] Address [address] [place] [address] 7t [place] [address] Care Team Providers Care Pearl Peller Name Role Phone Aimee Mcfarlane MD Primary Care Provider [phone] Angus Black PharmD Unavailable [phone] Reason for Visit * Reason Comments Med Refill Encounter Details Date Type Department Care Team (Late st Contact Info) Description 11/15/2023 Refill [facility] [address] [place] [phone] Angus Black, PharmD [address] [place], [place] [phone] Type 2 diabetes mellitus with hyperglycemia, with long-term current use of insulin ([facility]) Social History Tobacco Use Types Packs/Day Years Used Date Smoking Tobacco: Never Passive Smoke Exposure: Never Smokeless Tobacco: Never Comments Unknown Sex and Gender Information Value [...] Description 03/23/2025 11:30 AM EDT Medication Management [facility] [address] [place], [place] [phone] Angus Black, PharmD [address] [place], [place] [phone] documented as of this encounter Goals Goal Patient Goal Type Associated Problems Recent Progress Patient-Stated? Author Hemoglobin A1c < 7 Result Component 10.4( 5 11:01 AM EDT) No Angus Black, PharmD documented as of this encounter Visit Diagnoses Diagnosis Type 2 diabetes mellitus with hyperglycemia, with long-term current use of insulin (HCC) documented in this encounter Care Teams Pearl Peller Relationship Specialty Start Date End Date Aimee Mcfarlane MD [address] [place] [address] PCP - General Family Medicine 05/24/18 Angus Black, PharmD [address] [place] [phone] Pharmacist Internal Medicine 01/04/23 documented as of this encounter
--- OUTSIDE RECORDS SUMMARY | 2025-02-27 11:41 | XMS_ITS | Encounter Summary ---
Author Organization [employer] Address [address] [facility] [address] [place] [address] Care Team Providers Care Fire Sprinkler Installer Name Role Phone Aimee Mcfarlane MD Primary Care Provider [phone] Angus Black PharmD Unavailable [phone] Reason for Visit * Reason Comments Med Refill Encounter Details Date Type Department Care Team ([facility] Contact Info) Description 02/13/2025 Refill [facility] [address] [place], [place] [phone] Aimee Mcfarlane MD [address] [place], [place] [phone] Type 2 diabetes mellitus with hyperglycemia, with long-term current use of insulin ([facility]) Social History Tobacco Use Types Packs/Day Years [...] Description 03/23/2025 11:30 AM EDT Medication Management [facility] [address] [place] [phone] Angus Black, PharmD [address] [place] [phone] documented as of this encounter Goals Goal Patient Goal Type Associated Problems Recent Progress Patient-Stated? Author Hemoglobin A1c < 7 Result Component 10.4( 5 11:01 AM EDT) No Angus Black, PharmTyler documented as of this encounter Visit Diagnoses Diagnosis Type 2 diabetes mellitus with hyperglycemia, with long-term current use of insulin (HCC) documented in this encounter Additional Health Concerns Assessment Noted Time PHQ-9 Depression Total Score: 6 02/01/20 24 11:22 AM EDT documented as of this encounter Care Teams Fire Sprinkler Installer Relationship Specialty Start Date End Date Aimee Mcfarlane MD [address] [place] [address] [phone] PCP - General Family Medicine 05/24/18 Angus Black, PharmD [address] [place] [phone] Pharmacist Internal Medicine 01/04/23 documented as of this encounter
--- OUTSIDE RECORDS SUMMARY | 2025-02-27 11:41 | XMS_ITS | Clinical Summary ---
Author Organization [employer] Address [address] [place] [address] Care Team Providers Care Criminal Investigator Customs Name Role Phone Aimee Mcfarlane MD Primary Care Provider [phone] Angus Black PharmD Unavailable [phone] Allergies Active Allergy Reactions Criticality Noted Date Comments Latex Unknown 01/07/2024 Pineapple High 01/07/2024 Other Reaction(s): SORES IN MOUTH Tramadol 04/30/2016 Other reaction(s): Nausea Medications Continuous Blood Gluc Fall Intern (CommonBond Toni 2 Protivin) device Use to check blood glucose frequently and as directed Active Blood Pressure Monitor kitIndications:T ype 2 diabetes mellitus with hyperglycemia, with long-term current use of insulin ([facility]) Use to check blood pressure daily as directed 1 kit 023 Active Pentips 32G X 4 MM miscIndications: Type 2 diabetes mellitus with hyperglycemia ([facility]) USE DIRECTED FOUR TIMES DAILY 100 each 11 024 Active TRUEplus Lancets 33G miscIndications: Type 2 diabetes mellitus with hyperglycemia ([facility]) Use to test blood sugar up to three times daily as needed 100 each 11 024 Active Diclofenac Sodium 1 % gel APPLY TO THE AFFECTED AREA(S) TOPICALLY 2 GRAMS TWICE DAILY 100 g 3 024 Active Acetaminophen Extra Strength 500 MG tabletIndication s:Chronic right shoulder pain TAKE 2 TABLETS BY MOUTH EVERY 8 HOURS NEEDED FOR PAIN FOR UP TO 10 DAYS 30 tablet 025 Active fluticasone (Flonase) 50 MCG/ACT nasal sprayIndications :Sore throat INSTILL 1-2 SPRAYS IN EACH NOSTRIL ONCE DAILY 16 g 2 01/29/2 025 Active glucose blood (FreeStyle Precision Donnie Test) test stripIndications :Type 2 diabetes mellitus with hyperglycemia, with long-term current use of insulin ([facility]) TEST BLOOD SUGAR UP TO THREE TIMES DAILY NEEDED FOR HYPOGLYCEMIA 50 strip Active insulin degludec (Tresiba FlexTouch) 100 UNIT/ML injectionIndicat ions:Type 2 diabetes mellitus with hyperglycemia, with long-term current use of insulin ([facility]) Inject 28 units subcutaneously once daily 15 mL Active cholecalciferol (Vitamin D-3) 25 MCG tablet TAKE 1 TABLET BY MOUTH EVERY MORNING 90 tablet 3 Active Aspirin Low Dose 81 MG chewable tablet TAKE 1 TABLET BY MOUTH EVERY MORNING (CHEW) 90 tablet Active meclizine (Antivert) 25 MG tablet Take 1 tablet (25 mg) by mouth if needed in the morning, at noon, and at bedtime for dizziness. 30 tablet 1 Active Alcohol Swabs (Alcohol Prep) 70 % pads USE DIRECTED TO TEST BLOOD SUGAR AND INJECT INSULIN 100 each Active rosuvastatin (Crestor) 20 MG tabletIndication s:Dyslipidemia TAKE 1 TABLET BY MOUTH EVERY MORNING 90 tablet 3 025 Active lisinopril 2.5 MG tablet TAKE 1 TABLET BY MOUTH EVERY MORNING 90 tablet 3 025 Active omeprazole (PriLOSEC) [address] capsuleIndicatio ns:Gastroesophag eal reflux disease, unspecified whether esophagitis present TAKE 1 CAPSULE BY MOUTH EVERYDAY AT NOON 90 capsule Active hydrocortisone 2.5 % lotion APPLY TO SCALP ONCE DAILY Active Continuous Glucose Sensor (FreeStyle Toni 2 Plus Sensor) miscIndications: Type 2 diabetes mellitus with hyperglycemia, with long-term current use of insulin ([facility]) Apply 1 each topically every 15 days. Use to check blood sugar as directed. Change sensor every 15 days. 2 each Active insulin lispro (HumaLOG KWIKPEN) 100 UNIT/ML injectionIndicat ions:Type 2 diabetes mellitus with hyperglycemia, with long-term current use of insulin ([facility]) INJECT 14 UNITS SUBCUTANEOUSLY BEFORE BREAKFAST, 14 UNITS BEFORE LUNCH, AND 12 UNITS BEFORE SUPPER Active Continuous Glucose Sensor (FreeStyle Toni 2 Sensor) miscIndications: Type 2 diabetes mellitus with hyperglycemia, with long-term current use of insulin (HCC) USE DIRECTED TO TEST BLOOD SUGAR DIRECTED. CHANGE EVERY 14 DAYS . 2 each 5 024 2024 Discontinued(A lternate therapy) Hydrocortisone 2 % lotion Apply to scalp once daily 60 mL 025 2024 Discontinued(M ed list cleanup (will not trigger notification to Pharmacy)) insulin lispro (HumaLOG KWIKPEN) 100 UNIT/ML injectionIndicat ions:Type 2 diabetes mellitus with hyperglycemia, with long-term current use of insulin (HCC) INJECT 12 UNITS SUBCUTANEOUSLY BEFORE BREAKFAST, 16 UNITS BEFORE LUNCH, AND 14 UNITS BEFORE SUPPER 15 mL 3 025 2024 Discontinued(R eorder (will not trigger notification to Pharmacy)) Active Problems Problem Noted Date Diagnosed Date Hair loss 11/14/2024 Assessment & Plan (11/14/2024 3:26 PM EDT): - normal TSH - optimize chronic disease management - stress reduction - rule out Syphilis - Derm referral Diabetic retinopathy 02/06/2024 Assessment & Plan (02/06/2024 6:08 PM EDT): - following with Dr. Davis, [facility] Eye care, last seen on 01/27/24 - bilateral mild non-proliferative retionpathy - left eye with macular edema Skin lesion of face 02/01/2024 Constipation 10/27/2023 Assessment & Plan (10/27/2023 4:13 PM EDT): - multifactorial - possibly due to GLP-1 RA - fiber-rich diet - adequate water intake and exercise - refer for colonoscopy since it is due for colon cancer screening Metabolic dysfunction-associ ated steatotic liver disease (MASLD) 10/27/2023 Assessment & Plan (11/14/2024 3:22 PM EDT): - last imaging: Liver elastography on 11/16/23. There is generalized increase in hepatic echotexture, consistent with fatty infiltration or hepatocellular disease. Shear wave liver elastography median stiffness is 1.49 m/s (reference: normal median stiffness is 1.3 m/s or less). IQR/median stiffness to assess sampling precision is 0.15 (reference: good quality data set is IQR/median stiffness of 0.15 or less). - FIB4 index: 2.20 - Continue surveillance study - Continue working on lifestyle modifications Assessment & Plan (02/06/2024 6:08 PM EDT): >>ASSESSMENT AND PLAN FOR TRANSAMINITIS WRITTEN ON 10/27/2023 4:16 PM BY AIMEE MCFARLANE MD - MASLD - FIB4 index (needs platelet to calculate) - Will order US (with elastograophy) Assessment & Plan (02/06/2024 6:02 PM EDT): - last imaging: Liver elastography on 11/16/23. There is generalized increase in hepatic echotexture, consistent with fatty infiltration or hepatocellular disease. Shear wave liver elastography median stiffness is 1.49 m/s (reference: normal median stiffness is 1.3 m/s or less). IQR/median stiffness to assess sampling precision is 0.15 (reference: good quality data set is IQR/median stiffness of 0.15 or less). - FIB4 index: 2.20 - Continue surveillance study - Continue working on lifestyle modifications manager long term care (current) use of insulin (CMS/HCC) 08/2022 History of abnormal cervical Pap smear Assessment & Plan (11/02/2024 5:18 AM EDT): - 12/24/20 PAP NILM with high-risk HPV positive - 12/15/21 PAP NILM with high-risk HPV negative - 02/01/24 PAP NILM with high-risk HPV negative Assessment & Plan (02/06/2024 6:10 PM EDT): - 12/24/20 PAP NILM with high-risk HPV positive - 12/15/21 PAP NILM with high-risk HPV negative - 02/01/24 PAP Assessment & Plan (10/27/2023 4:11 PM EDT): - 12/24/20 PAP NILM with high-risk HPV positive - 12/15/21 PAP NILM with high-risk HPV negative -Scheduling PAP Assessment & Plan (09/23/2022 5:36 AM EDT): - 12/24/20 PAP NILM with high-risk HPV positive - 12/15/21 PAP NILM with high-risk HPV negative Family history of malignant neoplasm of breast in first degree relative 04/20/2022 Allergic rhinitis 08/16/2018 Chronic depression 10/03/2015 Assessment & Plan (11/14/2024 3:26 PM EDT): - grieving the loss of her son - pt declines BHS due to time constraints - she was able to contract her safety today Assessment & Plan (10/27/2023 4:10 PM EDT): - grieving the loss of her son - pt declines BHS due to time constraints - she was able to contract her safety today Assessment & Plan (09/23/2022 5:54 PM EDT): - grieving the loss of her son - pt declines BHS due to time constraints Diabetes mellitus, type 2 07/01/2012 Assessment & Plan (11/14/2024 3:31 PM EDT): -A1C 8.4% on 11/02/24, 8.2% on 02/01/24 -continue basal insulin (Lantus) 28 units once a day -continue bolus insulin (Humalog) to 14 units with breakfast; 16 units with lunch; 12 units with dinner -continue Semaglutide 0.25 mg weekly, titrate up as tolerated (currently having constipation). -glucose monitor: Freestyle Toni (with Freestyle Lite for confirmation) --Treatment Hx: -Pt tried dulaglutide, which she self-discontinued due to dizziness. -Patient tried semaglutide which she self-discontinued. -pt tried jardiance in 05/13 d/t dizziness. -metformin was discontinued due to GI side effect -Eye exam: Seen by Dr. Davis on 01/27/24. Bilateral mild non-proliferative diabetic retinopathy with left eye macular edema; bilateral early cataracts; presbyopia- Foot exam: 10/27/23. Mild diabetic neuropathy, Rx diabetic shoes previously -Last fasting lipid profile: 10/11/23 -Last microalbumin test: 10/11/23 UACR 23.7, on low-dose lisinopril -Last dental exam: Assessment & Plan (02/06/2024 6:06 PM EDT): -A1C 8.2% on 02/01/24 -continue basal insulin (Lantus) 34 units once a day -continue bolus insulin (Humalog) to 14 units with breakfast; 14 units with lunch; 14 units with dinner -continue Semaglutide 0.25 mg weekly, titrate up as tolerated (currently having constipation). -glucose monitor: Freestyle Toni (with Freestyle Lite for confirmation) --Treatment Hx: -Pt tried trulicity on 01/11 but self d/c due to dizziness. -pt tried jardiance in 05/13 d/t dizziness. -metformin was discontinued due to GI side effect -Eye exam: Seen by Dr. Davis on 01/27/24. Bilateral mild non-proliferative diabetic retinopathy with left eye macular edema; bilateral early cataracts; presbyopia- Foot exam: 10/27/23. Mild diabetic neuropathy, Rx diabetic shoes previously -Last fasting lipid profile: 10/11/23 -Last microalbumin test: 10/11/23 UACR 23.7, on low-dose lisinopril -Last dental exam: Assessment & Plan (10/27/2023 4:08 PM EDT): -A1C 7.7%, improving again. Personal best 7.5%. -continue basal insulin (Lantus) 34 units once a day -continue bolus insulin (Humalog) to 14 units with breakfast; 14 units with lunch; 14 units with dinner -continue Semaglutide 0.25 mg weekly, titrate up as tolerated (currently having constipation). -glucose monitor: Freestyle Toni (with Freestyle Lite for confirmation) --Treatment Hx: -Pt tried trulicity on 01/11 but self d/c due to dizziness. -pt tried jardiance in 05/13 d/t dizziness. -metformin was discontinued due to GI side effect -Eye exam: [facility] Jan 2023. Dx mild nonproliferative diabetic retinopathy of left eye with macular edema. -Foot exam: 10/27/23. Mild diabetic neuropathy, Rx diabetic shoes previously -Last fasting lipid profile: 10/11/23 -Last microalbumin test: 10/11/23 UACR 23.7, on low-dose lisinopril -Last dental exam: Assessment & Plan (09/23/2022 5:53 PM EDT): -A1C 9.0% on 09/23/22, worsened from 7.5% in Feb 2022. -continue metformin ER 500 mg bid (maximum tolerable dose) -continue basal insulin (Lantus) 30 units once a day -continue prandial insulin (Humalog) to 15 units with breakfast; 15 units with lunch; 9 units with dinner -glucose monitor: Freestyle Toni (with Freestyle Lite for confirmation) --Treatment Hx: -Pt tried trulicity on 01/11 but self d/c due to dizziness. -pt tried jardiance in 05/13 d/t dizziness. -advised to improve medication adherence -Pt agreed to see DM Education Nurse, Pt met today and scheduled follow-up appt. -Eye exam: [facility] 07/10/21; NO retinopathy -Foot exam: 09/23/22, diabetic neuropathy, Rx diabetic shoes -Last fasting lipid profile: 05/08/21 TC 151; TG 220; HDL 51; LDL 68 -Last microalbumin test: 08/26/20 UACR 17, on low-dose lisinopril -IZs up to date Obesity 07/01/2012 Backache 01/20/2012 Assessment & Plan (10/27/2023 4:10 PM EDT): - continue heat pack, massage, topical medications - try back exercise at home Dyslipidemia 01/20/2012 Assessment & Plan (11/14/2024 3:21 PM EDT): - last lipid profile 10/11/23 -continue working on lifestyle modifications -continue rosuvastatin 20mg daily; consider increasing to 40 mg qhs Assessment & Plan (02/01/2024 11:41 AM EDT): - last lipid profile 10/11/23 -continue working on lifestyle modifications -continue rosuvastatin 20mg daily Assessment & Plan (10/27/2023 4:11 PM EDT): - last lipid profile 10/11/23 -continue working on lifestyle modifications -continue rosuvastatin 20mg daily Assessment & Plan (09/23/2022 1:04 PM EDT): Last FLP: 05/08/21 TC 151; TG 220; HDL 51; LDL 68 -continue lifestyle modifications -continue Crestor 20mg daily Encounters Date Type Department Care Team Description 02/16/2025 Travel 02/15/2025 Telephone [facility] MEDICINE [address] [place] [address] Aimee Mcfarlane MD Insurance 02/13/2025 Telephone [facility] MEDICINE [address] [place] [address] Aimee Mcfarlane MD Paperwork/Forms; Durable Medical Equipment 02/13/2025 Refill [facility] [address] [place] [address] Aimee Mcfarlane MD Type 2 diabetes mellitus with hyperglycemia, with long-term current use of insulin ([facility]) 02/08/2025 Telephone [facility] MED[facility]INE [address] [place] [address] Angus Black, PharmD 01/24/2025 Travel 01/23/2025 Refill [facility] MED[facility]INE [address] [place] [address] Aimee Mcfarlane MD Dyslipidemia; Gastroesophageal reflux disease, unspecified whether esophagitis present 01/05/2025 Refill [facility] [address] [place] [address] Angus Black, PharmD Type 2 diabetes mellitus with hyperglycemia, with long-term current use of insulin ([facility]) 12/29/2024 Refill [facility] [address] [place] [address] Aimee Mcfarlane MD 12/28/2024 Telephone [facility] MED[facility]INE [address] [place] [address] Aimee Mcfarlane MD 12/19/2024 Telephone [facility] [address] [place] [address] Aimee Mcfarlane MD 12/07/2024 Telephone [facility] MED[facility]INE [address] [place] [address] Clari Robledo [place] az recall 12/01/2024 Refill [facility] [address] [place] [address] Aimee Mcfarlane MD Sore throat from Last 3 Months Immunizations Immunization Administration Dates Next Due Hep B, adult 04/14/2013,10/06/2005,09/04/2005 INFLUENZA INJECTABLE QUADRIV ALANT CCIIV4 MDCK Multi-dose vial 03/28/2019 Influenza Injectable Quadriv alant Preservative Free IIV4 MDCK 02/11/2023 Influenza injectable quadriv alent IIV4 with preservative 06/08/2017,07/02/2015 Influenza injectable quadriv alent preservative free 05/06/2020,04/22/2020,04/30/2016 Influenza, High Dose Seasona l, Preservative Free 02/18/2024 Influenza, IIV3, injectable 05/16/2014, 1,02/22/2009 Influenza, Split (incl. yen fied surface antigen) 02/17/2013,01/20/2012 Influenza, trivalent, adjuvanted 03/28/2019 Moderna Covid-19 Vaccine 12+ 10/08/2023( Deferred: Yarsani exemption - Patient getting mixed information from religion leaders),10/10/2020,09/12/2020 Pneumococcal Conjugate PCV 20 02/11/2023 Pneumococcal Polysaccharide PPSV23 02/16/2011, RSV Bivalent 10/08/2023(Deferred: Patient decision - Evangelical leaders are providing mixed informatin regarding vaccines) TD (adult), 2 Lf tetanus tox oid, preservative free, adsorbed 05/08/2009,08/03/2007,07/20/1996 Tdap 06/18/2023,01/20/2012 Zoster, Recombinant 03/28/2019,01/24/2019 Family History Medical History Relation Name Comments Hypertension Father Breast cancer Maternal Grandmother Breast cancer Mother Relation Name Status Comments Father Maternal Grandmother Mother Social History Tobacco Use Types Packs/Day Years Used Date Smoking Tobacco: Never Passive Smoke Exposure: Never Smokeless Tobacco: Never Tobacco Cessation:Counseling Given: Not Answered Depression Answer Date Recorded Patient Health Questionnaire-9 [...] Orientation Straight 03/23/2022 10 :14 AM EDT Last Filed Vital Signs Vital Sign Reading Time Taken Comments Blood Pressure 130/60 02/16/2025 1:55 PM EDT Pulse 84 02/16/2025 1:55 PM EDT Temperature 36 C (96.8 F) 11/02/2024 10:57 AM EDT Respiratory Rate 16 11/02/2024 10:57 AM EDT Oxygen Saturation 96% 02/07/2024 2:03 PM EDT Inhaled Oxygen Concentration - - Weight 82.1 kg (181 lb) 11/02/2024 10:57 AM EDT Height 154.9 cm (5' 1 ) 11/02/2024 10:57 AM EDT Body Mass Index 34.2 11/02/2024 10:57 AM EDT Plan of Treatment Upcoming Encounters Date Type Department Care Team (Late st Contact Info) Description 03/23/2025 11:30 AM EDT Medication Management [facility] MEDICINE [address] [place], [place] [phone] Angus Black, PharmD [address] [place] [address] Health Maintenance Due Date Last Done Comments CT Colonography 1960 FIT DNA/Cologuard 1960 FIT 1960 FOBT 1960 Sigmoidoscopy 1960 Hepatitis A Vaccines (1 of 2 - Risk 2-dose series) 1978 RSV Patients and Patients Aged 60 years or older (1 - Risk 60-74 years 1-dose series) 2019 COVID-19 Vaccine ( season) 2025 10/10/2020, 09/12/2020 Influenza Vaccine (#1) 2025 , 02/11/2023, 05/06/2020, Additional history exists Depression Screening 01/31/2025 02/01/2024, 02/01/20 24 SDOH Screening 01/31/2025 02/01/2024 Diabetes: Hemoglobin A1C 04/25/2025 025, 11/02/2024, 02/01/2024, Additional history exists Eye Exam 06/13/2025 06/13/2024, 05/25, 06/13/2024, Additional history exists Alcohol/Substance Use Screening 11/02/2025 11/02/2024 Diabetes: Foot Exam 11/02/2025 11/02/2024, 11/02/2024, 11/02/2024, Additional history exists Diabetes: Urine Protein Screening 11/02/2025 11/02/2024, 10/11/2023, 12/15/2021, Additional history exists Lipid Panel 11/02/2025 11/02/2024, 09/22, 09/23/2022, Additional history exists Tobacco Screening 11/02/2025 11/02/2024 Mammogram 12/02/2025 12/03/2023, 11/21, 09/22/2021, Additional history exists HPV/Cotest 01/31/2027 02/01/2024, 11/22, 12/24/2020 Pap Smear 01/31/2027 02/01/2024, 11/22, 12/24/2020 DTaP/Tdap/Td Vaccines (3 - Td or Tdap) 06/18/2033 06/18/2023, 01/20/2012, 05/08/2009, Additional history exists Colonoscopy 01/06/2034 01/07/2024 Colorectal Cancer Screening 01/06/2034 Hepatitis B Vaccines Completed 04/14/2013, 10/06/2005, 09/04/2005 Zoster Vaccines Completed 03/28/2019, 01/24/2019 Hepatitis C Screening Completed 12/15/2021 Pneumococcal Vaccine: 50+ Years Completed 02/11/2023, 02/16/2011, 12/23/2005 HIB Vaccines Aged Out No longer eligi ble based on patient's age to complete this topic HPV Vaccines Aged Out No longer eligi ble based on patient's age to complete this topic IPV Vaccines Aged Out No longer eligi ble based on patient's age to complete this topic Meningococcal B Vaccine Aged Out No l onger eligible based on patient's age to complete this topic Meningococcal Vaccine Aged Out No manoj arnol eligible based on patient's age to complete this topic RSV under 20 months Aged Out No longe r eligible based on patient's age to complete this topic Rotavirus Vaccines Aged Out No longer eligible based on patient's age to complete this topic Goals Goal Patient Goal Type Associated Problems Recent Progress Patient-Stated? Author Hemoglobin A1c < 7 Result Component 10.4( 11:01 AM EDT) No Angus Black PharmD Procedures Procedure Name Priority Date/Time Associated Diagnosis Comments BD DEXA AXIAL Routine 02/27/2025 10:38 AM EDT Osteoporosis screening Postmenopause POCT GLYCATED HEMOGLOBIN, TOTAL Routine 01/24/2025 11:01 AM EDT Type 2 diabetes mellitus with hyperglycemia, with long-term current use of insulin (CMS/HCC) ALBUMIN, RANDOM URINE W/CREATININE Routine 11/02/2024 12:13 PM EDT Type 2 diabetes mellitus with hyperglycemia, with long-term current use of insulin (CMS/HCC) LIPID PANEL WITH REFLEX TO DIRECT LDL Routine 11/02/2024 12:13 PM EDT Dyslipidemia THINPREP IMAGING PAP AND HPV MRNA E6/E7 Routine 02/01/2024 12:00 AM EDT HM COLONOSCOPY Routine 01/07/2024 BI MAMMOGRAM SCREENING TOMOSYNTHESIS BILATERAL Routine 12/03/2023 2:25 PM EDT ZZZ HISTORICAL HEPATITIS C AB W/REFL TO HCV RNA, QN, PCR Routine 12/15/2021 3:54 PM EDT from Last 3 Months or Most Recently Relevant to Health Maintenance Results * BD DEXA Axial (02/27/2025 10:38 AM EDT) Anatomical Region Laterality Modality Body Radiographic Gaby ging 02/27/2025 10:3 8 AM EDT Narrative 02/27/2025 10:47 AM EDT [facility] [address] [place] [address] Dr. [place], [place] [address] Mammography Report Signed Patient: Lyndsay Mercedes I MR #: [id number] : [id number] Acct:[id number] Age/Sex: 65 / F ADM Date: 02/27/25 Loc: HO.MAMMO Attending Dr: Aimee Mcfarlane MD Ordering Physician: Aimee Mcfarlane MD Results: Date of Service: 02/27/25 Follow Up: Procedure(s): XR DEXA axial skeleton Accession Number(s): [id number] cc: Aimee Mcfarlane MD Reason For Exam: postmenopause. osteoporosis screening EXAMINATION: DXA BONE DENSITY AXIAL HISTORY: postmenopause. Osteoporosis screening TECHNIQUE: Vapotherm Dual energy absorptiometry (DEXA) of the lumbar spine, total left hip, and femoral neck was performed. COMPARISON: There are no prior studies for comparison. FINDINGS: The bone mineral density of the lumbar spine is 1.066 g/cm2, corresponding to a T-score of -1.0, and a Z-score of 0.1. This is indicative of normal bone mineral density. The bone mineral density of the left total hip is 0.996 g/cm2, corresponding to a T-score of -0.1, and a Z-score of 0.8. This is indicative of normal bone mineral density. The bone mineral density of the left femoral neck is 0.934 g/cm2, corresponding to a T-score of -0.7, and a Z-score of 0.4. This is indicative of normal bone mineral density. MM/XR DEXA axial skeleton IMPRESSION: Based on bone mineral density, and according to World Health Organization (WHO) criteria, the diagnosis is consistent with normal bone mineral density. Statistically, 68% of repeat scans fall within 1 SD (+/- 0.010 g/cm2 for AP spine L1-L4) and 1 SD (+/- 0.012 g/cm2 for femur total) FRAX is a trademark of the [employer]'s [employer] Metabolic Bone Disease, a World Health Organization (WHO) Collaborating Center. Electronically signed by: Akhil Grey MD 02/27/2025 10:44 AM EDT Dictated By: Akhil Grey MD Signed By: <Electronically signed by Akhil Grey MD in OV> 02/27/25 1044 DD/ 1038 TD/TT: 02/27/25 1040 Family Literacy Coordinator: Procedure Note Donotuseinterpreter, Image - 02/27/2025 [facility] [address] [place] [address] Dr. [place], [place] [address] Mammography Report Signed Patient: Lyndsay Mercedes IMR #: [id number] : 9Acct:[id number] Age/Sex: 65 / FADM Date: 02/27/25 Loc: HO.MAMMO Attending Dr: Aimee Mcfarlane MD Ordering Physician: iAmee Mcfarlaneesults: Date of Service: 02/27/25Follow Up: Procedure(s): XR DEXA axial skeleton Accession Number(s): [id number] cc: Aimee Mcfarlane MD Reason For Exam: postmenopause. osteoporosis screening EXAMINATION: DXA BONE DENSITY AXIAL HISTORY: postmenopause. Osteoporosis screening TECHNIQUE: Vapotherm Dual energy absorptiometry (DEXA) of the lumbar spine, total left hip, and femoral neck was performed. COMPARISON: There are no prior studies for comparison. FINDINGS: The bone mineral density of the lumbar spine is 1.066 g/cm2, corresponding to a T-score of -1.0, and a Z-score of 0.1. This is indicative of normal bone mineral density. The bone mineral density of the left total hip is 0.996 g/cm2, corresponding to a T-score of -0.1, and a Z-score of 0.8. This is indicative of normal bone mineral density. The bone mineral density of the left femoral neck is 0.934 g/cm2, corresponding to a T-score of -0.7, and a Z-score of 0.4. This is indicative of normal bone mineral density. MM/XR DEXA axial skeleton IMPRESSION: Based on bone mineral density, and according to World Health Organization (WHO) criteria, the diagnosis is consistent with normal bone mineral density. Statistically, 68% of repeat scans fall within 1 SD (+/- 0.010 g/cm2 for AP spine L1-L4) and 1 SD (+/- 0.012 g/cm2 for femur total) FRAX is a trademark of the [employer]'s [employer] for Metabolic Bone Disease, a World Health Organization (WHO) Collaborating Center. Electronically signed by: Akhil Grey MD 02/27/2025 10:44 AM EDT RP Dictated By: Akhil Grey MD Signed By: <Electronically signed by Akhil Grey MD in OV> 02/27/25 1044 DD/ 1038 TD/TT: 02/27/25 1040 Family Literacy Coordinator: Aimee Mcfarlane MD IMG DXA PROCEDURES Final Result * (ABNORMAL) POCT HGB A1C (01/24/2025 11:01 AM EDT) Hemoglobin A1C 10.4(A) 4.0 - 5.7 % QC Media Lot # [id number] Lot# Expiration Date [id number] Blood 01/24/2025 11:0 1 AM EDT Aimee Mcfarlane MD POINT OF CARE TEST ENTER/EDIT OR DERABLES Final Result * (ABNORMAL) Lipid Panel with Reflex to Direct LDL (11/02/2024 12:13 PM EDT) Triglycerides 283(H) <150 mg/dL [facility] Comment:Desirable Triglyceri de: less than 150 mg/dLBorderline High Triglyceride 150-199 mg/dLHigh Triglyceride: 200-499 mg/dLVery High Triglyceride: greater than or equal to 5OO mg/dL Cholesterol 228(H) <200 mg/dL [facility] Comment:Desirable Cholestero l: less than 200 mg/dLBorderline High Cholesterol: 200-239 mg/dLHigh Cholesterol: greater than 239 mg/dL LDL Cholesterol Calculated 131(H) <100 mg/dL [facility] Comment:Desirable LDL: less than 100 mg/dLNear Optimal/Above Optimal LDL: 110- 129 mg/dLBorderline High LDL: 130-159 mg/dLHigh LDL: 160-189 mg/dLVery High LDL: greater than or equal to 190 mg/dL HDL Cholesterol 41 >40 mg/dL [facility] Comment:Desirable HDL: great er than 40 mg/dL Note: This HDL assay may give artificially low results in patients with liver disease. Blood 11/02/2024 12:1 3 PM EDT 11/02/2024 1:23 PM EDT Aimee Mcfarlane MD LAB BLOOD ORDERABLES Final Resul t Performing Organization Address [facility] de Phone Number [facility] [address] [place] [phone] * Albumin, Random Urine W/Creatinine (11/02/2024 12:13 PM EDT) Creatinine, Urine 101.18 mg/dL [facility] Microalbumin Urine 9.0 mg/L [facility] Microalbum Creatinine Ratio Ur 8.8 <30 ug/mg cr [facility] Comment:Albumin/Creatinine R atio Reference Ranges: Normal: < 30 ug/mg creatinine Microalbuminuria: 30 - 300 ug/mg creatinineClinical Albuminuria: > 300 ug/mg creatinine Urine 11/02/2024 12:1 3 PM EDT 11/02/2024 1:06 PM EDT Aimee Mcfarlane MD LAB URINE ORDERABLES Final Resul t Performing Organization Address [facility] Co de Phone Number [facility] [address] [place] [phone] * ThinPrep Imaging Pap and HPV mRNA E6/E7 (02/01/2024 12:00 AM EDT) HPV nRNA E6/E7 Not Detected Not Detected [facility] Comment:Methodology: Transcr iption-Mediated AmplificationThis assay detects E6/E7 viral messenger RNA (mRNA) from 14high-risk HPV types (16,18,31,33,35,39,45,51,52,56,58,59,66,68).Cervical sources are required for HPV testing.If a vaginal source from a patient who has had atotal hysterectomy with removal of cervix wassubmitted, please contact the testing laboratoryfor alternative testing options.For additional information, please refer tohttp://education.Achieved.co/faq/OPC187l7(This link if provided for information/educational purposes only.)THIS TEST WAS PERFORMED AT:[facility] [address] [phone] GOMEZ MD SOURCE: SEE NOTE [facility] Comment:None given Report Status: [facility] Clinical Information: SEE NOTE [facility] Comment:None given LMP: SEE NOTE [facility] Comment:NONE GIVEN Prev. PAP: SEE NOTE [facility] Comment:NONE GIVEN Prev. BX: SEE NOTE [facility] Comment:NONE GIVEN Statement Of Adequacy: SEE NOTE [facility] Comment:[employer] General Categorization: [facility] Interpretation/Result: SEE NOTE [facility] Comment:Cytology Results: Ne gative for intraepitheliallesion or malignancy.Atrophic pattern; predominantly parabasal cells Cytology Comment SEE NOTE [facility] Comment:This Pap test has be en evaluated with computerassisted technology. Voltage Regulator Assembler: SEE NOTE [facility] Comment:CONNELL, CT(ASCP)CT scre ening location: [place] [address] Review Voltage Regulator Assembler: SEE NOTE [facility] Comment:KF, CT(ASCP)CT scree ivelisse location: [place] [address] Pathologist [facility] PAP Infection [facility] See Note SEE [facility] Comment:EXPLANATORY NOTE:The Pap is a screening test for cervical cancer. It isnot a diagnostic test and is subject to false negativeand false positive results. It is most reliable when asatisfactory sample, regularly obtained, is submittedwith relevant clinical findings and history, and whenthe Pap result is evaluated along with historic andcurrent clinical information. 02/01/2024 02/01/2024 Narrative [facility] - 02/07/2024 12:55 PM EDT SEE SCANNED RESULTS IN EMR Aimee Mcfarlane MD LAB PATHOLOGY ORDERABLES Final R esult [facility] [address] [place] [address] [phone] * Hm Colonoscopy (01/07/2024) Colonoscopy Normal Normal Comment[place] [place] Historical Provider HEALTH MAINTENANCE Final Result * BI Mammogram Screening Tomosynthesis Bilateral (12/03/2023 2:25 PM EDT) Anatomical Region Laterality Modality Breast Bilateral Mammography 12/03/2023 2:25 PM EDT Narrative 12/29/2023 7:49 AM EDT [address] [place] [address] Mammography Report Signed Patient: Lyndsay Mercedes I MR #: [id number] : 1960 Acct:[id number] Age/Sex: 63 / F ADM Date: 12/03/23 Loc: [facility] Attending Dr: Aimee Mcfarlane MD Ordering Physician: Aimee Mcfarlane MD Results: 1Negative Date of Service: 12/03/23 Follow Up: 1 Year From [facility] ina Mammogram Procedure(s): MM tomosynthesis screening BI Accession Number(s): [id number] cc: Aimee Mcfarlane MD EXAMINATION: MM SCREENING DIGITAL BREAST TOMOSYNTHESIS, BILATERAL CLINICAL INFORMATION: Screening. Asymptomatic. COMPARISON: Mammography: This study is compared with prior exams dating back to 2019. TECHNIQUE: Digital breast tomosynthesis is performed in both the craniocaudal and mediolateral oblique views along with computer-aided detection (CAD). Synthesized 2D images are generated from the tomosynthesis. FINDINGS: There are scattered areas of fibroglandular density (ACR BI-RADS breast composition Category b). There are no significant masses, abnormal calcifications, or other abnormalities. MM/MM tomosynthesis screening BI IMPRESSION: No mammographic evidence of malignancy. ASSESSMENT: BI-RADS BI-RADS 1 - Negative RECOMMENDATION: Routine annual mammography screening. 1 year F/U This examination should not preclude the clinical evaluation of a suspicious palpable abnormality. This patient's information was entered into a reminder system with a target due date for their next mammogram. Dictated By: Belen Myles MD Signed By: <Electronically signed by Belen Myles MD in OV> 12/29/23 0745 DD/ 1425 TD/TT: Family Literacy Coordinator: Procedure Note Donotuseinterpreter, Image - 12/29/2023 [facility] [address] [place] [address] Mammography Report Signed Patient: Lyndsay Mercedes IMR #: [id number] : 9Acct:[id number] Age/Sex: 63 / FADM Date: 12/03/23 Loc: [facility] Attending Dr: Aimee Mcfarlane MD Ordering Physician: Aimee Mcfarlane MDResults: 1Negative Date of Service: 12/03/23Follow Up: 1 Year From Orig inal Mammogram Procedure(s): MM tomosynthesis screening BI Accession Number(s): [id number] cc: Aimee Mcfarlane MD EXAMINATION: MM SCREENING DIGITAL BREAST TOMOSYNTHESIS, BILATERAL CLINICAL INFORMATION: Screening. Asymptomatic. COMPARISON: Mammography: This study is compared with prior exams dating back to 2019. TECHNIQUE: Digital breast tomosynthesis is performed in both the craniocaudal and mediolateral oblique views along with computer-aided detection (CAD). Synthesized 2D images are generated from the tomosynthesis. FINDINGS: There are scattered areas of fibroglandular density (ACR BI-RADS breast composition Category b). There are no significant masses, abnormal calcifications, or other abnormalities. MM/MM tomosynthesis screening BI IMPRESSION: No mammographic evidence of malignancy. ASSESSMENT: BI-RADS BI-RADS 1 - Negative RECOMMENDATION: Routine annual mammography screening. 1 year F/U This examination should not preclude the clinical evaluation of a suspicious palpable abnormality. This patient's information was entered into a reminder system with a target due date for their next mammogram. Dictated By: Belen Myles MD Signed By: <Electronically signed by Belen Myles MD in OV> 12/29/23 0745 DD/ 1425 TD/TT: Family Literacy Coordinator: Aimee Mcfarlane MD IMG BI PROCEDURES Edited Result - Final * HEPATITIS C AB W/REFL TO HCV RNA, QN, PCR (12/15/2021 3:54 PM EDT) HEPATITIS C ANTIBODY NON-REACT ANUP NON-REACT ANUP [facility] INDEX 0.09 <1.00 [facility] Comment: HCV antibody was non-reactive. There is no laboratory evidence of HCV infection. In most cases, no further action is required. However, if recent HCV exposure is suspected, a test for HCV RNA (test code 89839) is suggested. For additional information please refer to http://education.Achieved.co/faq/JZO44g9 (This link is being provided for informational/ educational purposes only.) 12/15/2021 3:54 PM EDT Aimee Mcfarlane MD HISTORICAL/NON ORDERABLE LABS Fi nal Result [facility] [address] from Last 3 Months or Most Recently Relevant to Health Maintenance Insurance [facility] MEDICARE ADVANTAGE [place] [id number] Care Teams Criminal Investigator Customs Relationship Specialty Start Date End Date Aimee Mcfarlane MD [address] [place] [address] PCP - General Family Medicine 05/24/18 Angus Black, PharmD [address] [place] [phone] Pharmacist Internal Medicine 01/04/23
== END 2025-02-27 09:59 | disposition home or self-care (01) ==
LOC: HO.MAMMO 09:58
PROVIDERS: PCP Family Medicine; Visit Provider Family Medicine
DX: Z13.820 Encounter for screening for osteoporosis (principal); Z78.0 Asymptomatic menopausal state; Z12.31 Encounter for screening mammogram for malignant neoplasm of breast
CPT/HCPCS: 77063; 77067; 77080

== ENCOUNTER → 2025-02-27 10:30 | Outpatient (BNV) | payer MEDICARE, SELFPAY | PROVIDERS: PCP Family Medicine; Visit Provider Radiology Diagnostic Radiology | DX: E28.39 Other primary ovarian failure (principal) | CPT/HCPCS: 77080 ==